=== PATIENT | female | born 1965 | race Caucasian/White ===

== ENCOUNTER 2021-06-14 05:50 | Day surgery (SDC) | payer MEDICAID, SELFPAY ==
[~2021-06-14] VITALS: Ht 149.9 cm; Wt 77.1 kg
[2021-06-14] MEDS ORDERED: SIMETHICONE 40 MG/0.6 ML ML ONE (08:07)
[2021-06-14] MEDS: MIDAZOLAM HCL 5 MG/5 ML VIAL ONE ×6 (08:31→08:44)
[2021-06-14] MEDS: MEPERIDINE 100 MG INJ. 100 MG/ML VIAL ONE ×3 (08:31→08:42)
[2021-06-14] MEDS ORDERED: DIPHENHYDRAMINE INJ 50 MG/ML VIAL ONE (08:45)
[2021-06-14] MEDS ORDERED: SIMETHICONE 80 MG TAB.CHEW PO ONE (10:15)
[2021-06-14 10:37] VITALS: BP_SYST 103
== END 2021-06-14 10:50 | disposition home or self-care (01) ==
LOC: SDS 05:50 → SMU 05:50 → SDS 10:50
PROVIDERS: ATTEND Internal Medicine Gastroenterology
DX: R19.4 Change in bowel habit (principal); K51.90 Ulcerative colitis, unspecified, without complications; K57.30 Diverticulosis of large intestine without perforation or abscess without bleeding; K64.8 Other hemorrhoids; M32.9 Systemic lupus erythematosus, unspecified; M79.7 Fibromyalgia; N99.4 Postprocedural pelvic peritoneal adhesions; R79.89 Other specified abnormal findings of blood chemistry; Z79.899 Other long term (current) drug therapy
CPT/HCPCS: 36415; 45380; 87426; 88305; 96365; 99152; 99153; G0378; J1200; J2175; J2250